=== PATIENT | male | born 1985 | race Caucasian/White ===

== ENCOUNTER 2020-01-17 20:30 | Emergency (ER) | payer OTHER ==
[~2020-01-17] VITALS: Ht 205.7 cm; Wt 90.7 kg
[2020-01-17 20:33] VITALS: BP_SYST 117
--- NOTE | 2020-01-17 20:33 | NUR ---
Patient triaged and on EMS GURNEY IN HALLWAY. VSS and patient appears in no acute distress at this time. Accompanied by EMS, awaiting available bed, and MD notified of need for MSE.
--- NOTE | 2020-01-17 20:33 | NUR ---
ER Dr. HAYNES at bedside examining patient.
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
--- NOTE | 2020-01-17 20:36 | NUR ---
# 20 gauge angiocath placed to LAC PLACED BY FIRE. Flushed with 10 cc of normal saline. No evidence of infiltration noted. Patient tolerated well.
[2020-01-17] MEDS ORDERED: DIPH-TET-PERTUS Vaccine 0.5 ML VIAL (ADACEL) I.M. ONE (20:45)
--- NOTE | 2020-01-17 21:20 | NUR ---
Patient has a 2 cm laceration to RIGHT POINTER FINGER. Dr. HAYNES applied DERMABOND using sterile technique. Edges well approximated. Site cleansed with NORMAL SALINE. Dressing of WRAP applied to site. No bleeding noted. Pt tolerated well.
[2020-01-17 21:54] VITALS: BP_SYST 122
--- NOTE | 2020-01-17 21:54 | NUR ---
Patient given written and verbal discharge instructions and verbalizes understanding. ER MD discussed with patient the results and treatment provided. Patient in stable condition. ID arm band removed. IV catheter removed intact and dressing applied, no active bleeding. Rx of motrin given. Patient educated on pain management and to follow up with PMD. Pain Scale 0/10. Opportunity for questions provided and answered. Medication side effect fact sheet provided.
[2020-01-18] MEDS ORDERED: TUBERCULIN,PURIF.PROT.DERIV. 0.1 ML SYR ID ONE (00:29)
== END 2020-01-17 21:54 | disposition home or self-care (01) ==
LOC: SED 20:30
DX: S61.211A Laceration without foreign body of left index finger without damage to nail, initial encounter (principal); F17.200 Nicotine dependence, unspecified, uncomplicated; F14.90 Cocaine use, unspecified, uncomplicated; W26.0XXA Contact with knife, initial encounter; Y93.89 Activity, other specified; Y92.89 Other specified places as the place of occurrence of the external cause; Y99.8 Other external cause status
CPT/HCPCS: 86580; 90715; 99283